=== PATIENT | male | born 1990 | race Caucasian/White ===

== ENCOUNTER 2020-11-04 06:45 | Emergency (ER) | payer SELFPAY ==
[~2020-11-04] VITALS: Ht 175.3 cm; Wt 72.0 kg
[2020-11-04] MEDS ORDERED: IBUP-2028 PO (07:20)
[2020-11-04] MEDS ORDERED: IBUPROFEN 800MG TABLET PO ONE (07:30)
[2020-11-04] MEDS ORDERED: ONDA4TAB5 PO (07:31)
[2020-11-04 07:33] VITALS: BP 128/70
== END 2020-11-04 07:35 | disposition home or self-care (01) ==
LOC: ER 06:45
DX: U07.1 COVID-19 (principal); I49.9 Cardiac arrhythmia, unspecified
CPT/HCPCS: 93005; 99283

== ENCOUNTER 2021-01-06 15:09 | Emergency (ER) | payer MEDICAID, OTHER ==
[~2021-01-06] VITALS: Ht 165.1 cm; Wt 63.0 kg
[~2021-01-06 15:09] MED LIST: IBUP-2028 PO; ONDA4TAB5 PO
[2021-01-06 15:13] VITALS: BP 111/69
[2021-01-06 19:13] LABS: BASOPHILS % 0.5 % (0.0-2.0); EOSINOPHILS % 1.1 % (0.0-5.0); HEMATOCRIT. 48.2 % (42.0-52.0); HEMOGLOBIN. 16.3 g/dL (14.0-18.0); LYMPHOCYTES % 32.4 % (20.0-50.0); MEAN CORPUSCULAR HEMOGLOBIN 29.1 pg (28.0-32.0); MEAN CORPUSCULAR VOLUME 86.2 fL (80.0-94.0); MEAN PLATELET VOLUME 8.2 fl (7.4-10.4); MONOCYTES % 6.3 % (2.0-8.0); NEUTROPHILS % 59.7 % (40.0-76.0); PLATELET 252 x1000/uL (130-400); RED BLOOD CELL COUNT 5.59 mill/uL (4.7-6.1); RED CELL DISTRIBUTION WIDTH 13.9 % (11.6-14.6)
[2021-01-06 19:21] LABS: CHLORIDE 105 mEq/L (98-107)
[2021-01-07] MEDS ORDERED: TAMS-11 MT (00:03)
[2021-01-07] MEDS ORDERED: IBUP-2028 MT (00:03)
[2021-01-07] MEDS ORDERED: HYDR-4001 MT (00:03)
[2021-01-07] MEDS ORDERED: CIPR500T5 MT (00:23)
== END 2021-01-06 19:45 | disposition home or self-care (01) ==
LOC: ER 15:09
DX: R10.31 Right lower quadrant pain (principal); Z98.890 Other specified postprocedural states
CPT/HCPCS: 36415; 76857; 80053; 85025; 99284

== ENCOUNTER 2021-01-06 20:53 | Emergency (ER) | payer MEDICAID ==
[~2021-01-06] VITALS: Ht 167.6 cm; Wt 69.0 kg
[2021-01-06] MEDS ORDERED: KETOROLAC 60MG/2ML VIAL IM STA (22:19)
[2021-01-06 23:01] LABS: BASOPHILS % 0.3 % (0.0-2.0); EOSINOPHILS % 0.4 % (0.0-5.0); HEMOGLOBIN. 16.6 g/dL (14.0-18.0); LYMPHOCYTES % 17.9 % (20.0-50.0); MEAN CORPUSCULAR HEMOGLOBIN 29.8 pg (28.0-32.0); MEAN PLATELET VOLUME 7.7 fl (7.4-10.4); MONOCYTES % 5.4 % (2.0-8.0); PLATELET 249 x1000/uL (130-400); RED BLOOD CELL COUNT 5.58 mill/uL (4.7-6.1); RED CELL DISTRIBUTION WIDTH 13.9 % (11.6-14.6)
[2021-01-06 23:09] LABS: CHLORIDE 106 mEq/L (98-107)
[2021-01-07] MEDS ORDERED: HYDR-4001 MT (00:03)
[2021-01-07] MEDS ORDERED: IBUP-2028 MT (00:03)
[2021-01-07] MEDS ORDERED: TAMS-11 MT (00:03)
[2021-01-07] MEDS ORDERED: HYDROCODONE/ACETAMINOPHEN 5/325MG TABLET PO ONE (00:15)
[2021-01-07] MEDS ORDERED: IBUPROFEN 400MG TABLET PO ONE (00:15)
[2021-01-07 00:19] LABS: CLARITY URINE TURBID (CLEAR); COLOR URINE ORANGE (YELLOW); KETONES URINE 3+ (NEGATIVE); LEUKOCYTE ESTERASE URINE 1+ (NEGATIVE); NITRITE URINE NEGATIVE (NEGATIVE); OCCULT BLOOD URINE 3+ (NEGATIVE); PROTEIN URINE 2+ (NEGATIVE); SPECIFIC GRAVITY URINE 1.026 (1.005-1.030); UROBILINOGEN URINE 0.2 E.U./dL (0.2-1.0)
[2021-01-07] MEDS ORDERED: CIPR500T5 MT (00:23)
[2021-01-07 00:45] VITALS: BP 135/78
== END 2021-01-07 00:47 | disposition home or self-care (01) ==
LOC: ER 20:53
DX: N13.2 Hydronephrosis with renal and ureteral calculous obstruction (principal); M41.9 Scoliosis, unspecified
CPT/HCPCS: 36415; 74176; 80053; 81003; 85025; 99284; J1885